=== PATIENT | male | born 1960 | race Hispanic/Latino ===

== ENCOUNTER 2017-01-10 08:59 | Outpatient (CLI) | payer OTHER ==
[2017-01-10 09:22] LABS: #Basophils 0.1 thou/uL (0.0-0.2); #Eosinphils 0.2 thou/uL (0.0-0.7); #Monocytes 0.4 thou/uL (0.11-0.59); #Neutrophils 6.6 thou/uL (1.40-6.50); %Basophils 0.7 % (0.0-1.0); %Lymphocytes 11.6 % (21.0-51.0); %Monocytes 5.2 % (0.0-10.0); %Neutrophils 79.6 % (42.0-75.0); Hemoglobin 16.2 g/dL (14.0-18.0); Mean Corpuscular Hemoglobin 30.6 pg (27.0-31.0); Mean Corpuscular Volume 92.8 fl (80.0-94.0); Mean Platelet Volume 7.7 fL (7.4-10.4); Platelet Count 329 thou/uL (130-400); RBC Distribution Width 12.2 % (11.5-14.5); Red Blood Cell (RBC) Count 5.28 mill/uL (4.70-6.10); White Blood Cell (WBC) Count 8.3 thou/uL (4.8-10.8)
[2017-01-10 09:33] LABS: Hemoglobin A1c 6.7 % (4.0-6.0)
[2017-01-10 09:44] LABS: ALT (SGPT) 15 U/L (8-55); AST (SGOT) 17 U/L (5-34); Albumin 3.8 g/dL (3.5-5.0); Alkaline Phosphatase 108 U/L (40-150); Anion Gap 17 mmol/L (10-20); BUN (Urea Nitrogen) 12 mg/dL (8.4-25.7); Bilirubin, Total 0.8 mg/dL (0.2-1.2); Calc. Creatinine Clearance 0 mL/min (70-130); Calcium 8.8 mg/dL (7.8-10.44); Carbon Dioxide 22 mmol/L (22-29); Cardiac Risk 4.2 (Less than 4.5); Chloride 102 mmol/L (98-107); Cholesterol 221 mg/dl (< 200 Desired); Estimated GFR-MDRD 72; Glucose 192 mg/dL (70-105); HDL Cholesterol 53 mg/dL (>60 Neg Risk); LDL Cholesterol, Calculated 130 mg/dL; Potassium 3.8 mmol/L (3.5-5.1); Protein, Total 6.8 g/dL (6.0-8.3); Sodium 137 mmol/L (136-145); Triglycerides 189 mg/dL (Less than 150)
[2017-01-10 10:02] LABS: Free T4 (Free Thyroxine) 0.89 ng/dL (0.70-1.48); Thyroid Stimulating Hormone 2.3541 uIU/mL (0.35-4.94)
== END 2017-01-10 09:00 | disposition home or self-care (01) ==
LOC: MADLABBHPM 08:59
PROVIDERS: ATTEND Family Medicine
DX: I10 Essential (primary) hypertension (principal)
CPT/HCPCS: 36415; 80053; 80061; 83036; 84439; 84443; 85025

== ENCOUNTER 2017-08-11 08:18 | Emergency (ER) | payer OTHER, SELFPAY ==
[2017-08-11] MEDS ORDERED: Sulfameth/Trimethoprim DS 800-160mg TAB ONE (08:42)
== END 2017-08-11 08:50 | disposition home or self-care (01) ==
LOC: MADERS 08:18
DX: L03.811 Cellulitis of head [any part, except face] (principal); I10 Essential (primary) hypertension; Z79.82 Long term (current) use of aspirin; Z79.899 Other long term (current) drug therapy
CPT/HCPCS: 99283

== ENCOUNTER 2017-08-14 16:06 | Outpatient (CLI) | payer OTHER, SELFPAY ==
[2017-08-14 16:45] LABS: ALT (SGPT) 15 U/L (8-55); AST (SGOT) 15 U/L (5-34); Albumin 3.8 g/dL (3.5-5.0); Alkaline Phosphatase 109 U/L (40-150); Anion Gap 14 mmol/L (10-20); BUN (Urea Nitrogen) 16 mg/dL (8.4-25.7); Bilirubin, Total 0.6 mg/dL (0.2-1.2); Calc. Creatinine Clearance 0 mL/min (70-130); Calcium 9.1 mg/dL (7.8-10.44); Carbon Dioxide 26 mmol/L (22-29); Cardiac Risk 3.3 (Less than 4.5); Chloride 102 mmol/L (98-107); Cholesterol 163 mg/dl (< 200 Desired); Estimated GFR-MDRD 67; Globulin 3.2 g/dL (2.4-3.5); Glucose 184 mg/dL (70-105); HDL Cholesterol 50 mg/dL (>60 Neg Risk); LDL Cholesterol, Calculated 98 mg/dL; Potassium 4.1 mmol/L (3.5-5.1); Sodium 138 mmol/L (136-145); Triglycerides 74 mg/dL (Less than 150)
[2017-08-14 20:26] LABS: Hemoglobin A1c 6.4 % (4.0-6.0)
== END 2017-08-14 16:07 | disposition home or self-care (01) ==
LOC: MADLABBHPM 16:06
PROVIDERS: ATTEND Family Medicine
DX: E11.9 Type 2 diabetes mellitus without complications (principal)
CPT/HCPCS: 36415; 80053; 80061; 83036

== ENCOUNTER 2017-08-16 21:04 | Emergency (ER) | payer SELFPAY | END 2017-08-16 22:10 | disposition home or self-care (01) | LOC: MADERS 21:04 | DX: Z48.01 Encounter for change or removal of surgical wound dressing (principal); Z48.817 Encounter for surgical aftercare following surgery on the skin and subcutaneous tissue; I10 Essential (primary) hypertension; Z87.891 Personal history of nicotine dependence; Z79.899 Other long term (current) drug therapy | CPT/HCPCS: 99282 ==

== ENCOUNTER 2017-12-02 18:04 | Emergency (ER) | payer SELFPAY ==
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
== END 2017-12-02 19:11 | disposition home or self-care (01) ==
LOC: MADERS 18:04
DX: S60.222A Contusion of left hand, initial encounter (principal); S60.221A Contusion of right hand, initial encounter; S80.10XA Contusion of unspecified lower leg, initial encounter; S06.9X9A Unspecified intracranial injury with loss of consciousness of unspecified duration, initial encounter; I10 Essential (primary) hypertension; Z87.891 Personal history of nicotine dependence; Z79.82 Long term (current) use of aspirin; Z79.899 Other long term (current) drug therapy; Y04.0XXA Assault by unarmed brawl or fight, initial encounter
CPT/HCPCS: 70450; 71046

== ENCOUNTER 2018-03-30 05:27 | Emergency (ER) | payer SELFPAY ==
[2018-03-30] MEDS ORDERED: Ondansetron ODT 4 MG TAB ONE (06:09)
[2018-03-30] MEDS ORDERED: Meclizine HCl 25 MG TAB ONE (06:09)
[2018-03-30] MEDS ORDERED: Lisinopril 10 MG TAB ONE ×2 (06:22)
[2018-03-30] MEDS ORDERED: Metoclopramide HCl 10 MG/2 ML VIAL ONE (06:58)
[2018-03-30 07:33] LABS: #Eosinphils 0.1 thou/uL (0.0-0.7); #Lymphocytes 0.7 thou/uL (1.20-3.40); #Monocytes 0.3 thou/uL (0.11-0.59); %Basophils 0.6 % (0.0-1.0); %Eosinophils 1.7 % (0.0-10.0); %Lymphocytes 9.5 % (21.0-51.0); %Monocytes 4.4 % (0.0-10.0); %Neutrophils 83.7 % (42.0-75.0); Hemoglobin 15.8 g/dL (14.0-18.0); Mean Corpuscular HGB CONC 31.9 g/dL (32.0-36.0); Mean Corpuscular Hemoglobin 29.3 pg (27.0-31.0); Mean Corpuscular Volume 91.8 fL (78.0-98.0); Mean Platelet Volume 7.2 fL (7.4-10.4); Platelet Count 294 thou/uL (130-400); Red Blood Cell (RBC) Count 5.39 mill/uL (4.70-6.10); White Blood Cell (WBC) Count 7.2 thou/uL (4.8-10.8)
[2018-03-30 07:41] LABS: INR-International Normal Ratio 0.9; Prothrombin Time 12.1 SEC (12.0-14.7)
[2018-03-30 07:51] LABS: ALT (SGPT) 11 U/L (8-55); AST (SGOT) 14 U/L (5-34); Albumin 4.1 g/dL (3.5-5.0); Alkaline Phosphatase 91 U/L (40-150); Anion Gap 15 mmol/L (10-20); BUN (Urea Nitrogen) 20 mg/dL (8.4-25.7); Bilirubin, Total 0.5 mg/dL (0.2-1.2); Calc. Creatinine Clearance 0 mL/min (70-130); Calcium 9.3 mg/dL (7.8-10.44); Carbon Dioxide 27 mmol/L (22-29); Chloride 103 mmol/L (98-107); Estimated GFR-MDRD 71; Globulin 2.7 g/dL (2.4-3.5); Glucose 200 mg/dL (70-105); Potassium 4.1 mmol/L (3.5-5.1); Protein, Total 6.8 g/dL (6.0-8.3); Sodium 141 mmol/L (136-145)
== END 2018-03-30 08:10 | disposition home or self-care (01) ==
LOC: MADERS 05:27
DX: I11.0 Hypertensive heart disease with heart failure (principal); I50.9 Heart failure, unspecified; E78.5 Hyperlipidemia, unspecified; Z87.891 Personal history of nicotine dependence; Z79.84 Long term (current) use of oral hypoglycemic drugs; Z79.899 Other long term (current) drug therapy
CPT/HCPCS: 80053; 85025; 85610; 96372; J2765; Q0162

== ENCOUNTER 2018-12-14 08:06 | Emergency (ER) | payer BC, OTHER, SELFPAY ==
[2018-12-14] MEDS ORDERED: Ketorolac Tromethamine 30 MG/ML VIAL ONE (09:09)
[2018-12-14] MEDS ORDERED: Diazepam 5 MG TAB ONE (09:09)
--- NOTE | 2018-12-14 10:38 | CT ---
CT ABDOMEN AND PELVIS: Date: 12/14/18 PROVIDED CLINICAL HISTORY: Right flank pain. FINDINGS: Visualized lung bases are free of significant opacity. There is no evidence for urinary tract calculi or hydronephrosis. The solid abdominal organs are subo ptimally evaluated in the absence of IV contrast but demonstrate an unremarkable unenhanced CT appear ance. There is no bowel dilatation, inflammatory fat stranding, free fluid, or free air apparent. Vascular calcifications are seen. The osseous structures demonstrate no concerning lytic or blastic l esions. Lumbar spine degenerative changes are seen. IMPRESSION: No evidence for urinary tract calculi or hydronephrosis. POS: [facility]
== END 2018-12-14 09:50 | disposition home or self-care (01) ==
LOC: MADERS 08:06
DX: S33.5XXA Sprain of ligaments of lumbar spine, initial encounter (principal); E11.9 Type 2 diabetes mellitus without complications; E78.5 Hyperlipidemia, unspecified; I11.0 Hypertensive heart disease with heart failure; I50.9 Heart failure, unspecified; Z87.891 Personal history of nicotine dependence; Z79.899 Other long term (current) drug therapy; X50.1XXA Overexertion from prolonged static or awkward postures, initial encounter
CPT/HCPCS: 74176; 96372; J1885

== ENCOUNTER 2019-06-24 14:14 | Emergency (ER) | payer SELFPAY ==
[2019-06-24] MEDS ORDERED: Prochlorperazine 10 MG/2 ML VIAL ONE (15:07)
== END 2019-06-24 15:29 | disposition home or self-care (01) ==
LOC: MADERS 14:14
DX: R42 Dizziness and giddiness (principal); R11.2 Nausea with vomiting, unspecified; I11.0 Hypertensive heart disease with heart failure; I50.9 Heart failure, unspecified; E11.9 Type 2 diabetes mellitus without complications; E78.5 Hyperlipidemia, unspecified; E78.00 Pure hypercholesterolemia, unspecified; Z87.891 Personal history of nicotine dependence; Z85.810 Personal history of malignant neoplasm of tongue; Z79.82 Long term (current) use of aspirin; Z79.84 Long term (current) use of oral hypoglycemic drugs; Z79.899 Other long term (current) drug therapy
CPT/HCPCS: 96372; 99283; J0780

== ENCOUNTER 2019-11-30 19:45 | Emergency (ER) | payer SELFPAY ==
[2019-11-30] MEDS ORDERED: Morphine 4 MG/ML VIAL ONE (21:44)
[2019-11-30] MEDS ORDERED: Ketorolac Tromethamine 30 MG/ML VIAL ONE (21:44)
[2019-11-30] MEDS ORDERED: Morphine 2 MG/ML SYRINGE ONE (21:44)
[2019-11-30] MEDS ORDERED: predniSONE 20 MG TAB ONE (21:44)
== END 2019-11-30 22:00 | disposition home or self-care (01) ==
LOC: MADERS 19:45
DX: S39.012A Strain of muscle, fascia and tendon of lower back, initial encounter (principal); E11.9 Type 2 diabetes mellitus without complications; E78.5 Hyperlipidemia, unspecified; E78.00 Pure hypercholesterolemia, unspecified; I11.0 Hypertensive heart disease with heart failure; I50.9 Heart failure, unspecified; Z87.891 Personal history of nicotine dependence; Z79.84 Long term (current) use of oral hypoglycemic drugs; Z79.82 Long term (current) use of aspirin; Z79.899 Other long term (current) drug therapy; X50.1XXA Overexertion from prolonged static or awkward postures, initial encounter
CPT/HCPCS: 96372; 99283; J1885; J2270; J7512

== ENCOUNTER 2019-12-23 01:00 | Emergency (ER) | payer SELFPAY ==
[2019-12-23] MEDS ORDERED: Tetracaine 0.5% OPHTH SOLN/PF 4 ML BOT ONE (01:25)
[2019-12-23] MEDS ORDERED: Fluorescein Opthalmic Strip ONE (01:26)
[2019-12-23] MEDS ORDERED: Tobramycin Sulfate 0.3% Ophth Susp 5 ml Bottle ONE (01:42)
[2019-12-23] MEDS ORDERED: Gentamicin 80 MG/2 ML VIAL ONE (01:43)
[2019-12-23] MEDS ORDERED: Erythromycin Base 0.5% Ophth Oint 3.5 gm Tube ONE (01:44)
== END 2019-12-23 02:10 | disposition home or self-care (01) ==
LOC: MADERS 01:00
DX: S05.31XA Ocular laceration without prolapse or loss of intraocular tissue, right eye, initial encounter (principal); E11.9 Type 2 diabetes mellitus without complications; E78.5 Hyperlipidemia, unspecified; E78.00 Pure hypercholesterolemia, unspecified; I11.0 Hypertensive heart disease with heart failure; I50.9 Heart failure, unspecified; Z87.891 Personal history of nicotine dependence; Z79.84 Long term (current) use of oral hypoglycemic drugs; Z79.82 Long term (current) use of aspirin; Z79.899 Other long term (current) drug therapy; W22.09XA Striking against other stationary object, initial encounter
CPT/HCPCS: 99283; J1580

== ENCOUNTER 2020-02-09 19:38 | Emergency (ER) | payer SELFPAY ==
[2020-02-09] MEDS ORDERED: Ketorolac Tromethamine 30 MG/ML VIAL ONE (20:49)
[2020-02-09] MEDS ORDERED: predniSONE 20 MG TAB ONE (20:49)
== END 2020-02-09 20:59 | disposition home or self-care (01) ==
LOC: MADERS 19:38
DX: S33.5XXA Sprain of ligaments of lumbar spine, initial encounter (principal); E11.9 Type 2 diabetes mellitus without complications; I10 Essential (primary) hypertension; Z87.891 Personal history of nicotine dependence; Z79.82 Long term (current) use of aspirin; Z79.84 Long term (current) use of oral hypoglycemic drugs; X50.1XXA Overexertion from prolonged static or awkward postures, initial encounter
CPT/HCPCS: 96372; 99283; J1885; J7512

== ENCOUNTER 2020-07-19 14:08 | Emergency (ER) | payer SELFPAY ==
[2020-07-19] MEDS ORDERED: Ondansetron PF 4 MG/2 ML Vial ONE (14:46)
[2020-07-19] MEDS ORDERED: Sodium Chloride 0.9% 1,000 ML ONE (14:46)
[2020-07-19] MEDS ORDERED: Ketorolac Tromethamine 30 MG/ML VIAL ONE (14:46)
--- NOTE | 2020-07-19 15:02 | CT ---
CT BRAIN WITHOUT CONTRAST: HISTORY: Headache, dizziness COMPARISON: 12/02/2017 FINDINGS: No evidence of acute infarct, hemorrhage, midline shift or abnormal extra-axial fluid collections is seen. The ventricular size is appropriate and the basilar cisterns are patent. The bony calvarium is intact. The visualized paranasal sinuses and mastoid air cells are well aerated. IMPRESSION: No CT evidence of acute intracranial process.
[2020-07-19 15:12] LABS: #Lymphocytes 0.6 thou/uL (1.20-3.40); #Monocytes 0.3 thou/uL (0.11-0.59); #Neutrophils 9.7 thou/uL (1.40-6.50); %Basophils 0.2 % (0.0-1.0); %Eosinophils 0.1 % (0.0-10.0); %Monocytes 2.4 % (0.0-10.0); %Neutrophils 91.3 % (42.0-75.0); Hemoglobin 15.4 g/dL (14.0-18.0); Mean Corpuscular HGB CONC 33.6 g/dL (32.0-36.0); Mean Corpuscular Hemoglobin 30.9 pg (27.0-31.0); Mean Corpuscular Volume 92.1 fL (78.0-98.0); Mean Platelet Volume 6.8 fL (7.4-10.4); Platelet Count 349 thou/uL (130-400); RBC Distribution Width 10.5 % (11.5-14.5); Red Blood Cell (RBC) Count 4.99 mill/uL (4.70-6.10); White Blood Cell (WBC) Count 10.6 thou/uL (4.8-10.8)
[2020-07-19 15:27] LABS: ALT (SGPT) 15 U/L (8-55); AST (SGOT) 15 U/L (5-34); Alkaline Phosphatase 83 U/L (40-110); Anion Gap 14 mmol/L (10-20); BUN (Urea Nitrogen) 14 mg/dL (8.4-25.7); Bilirubin, Total 0.5 mg/dL (0.2-1.2); CK (CPK) 52 U/L (30-200); Calc. Creatinine Clearance 0 mL/min (70-130); Carbon Dioxide 25 mmol/L (23-31); Chloride 100 mmol/L (98-107); Globulin 2.7 g/dL (2.4-3.5); Glucose 210 mg/dL (80-115); Potassium 3.8 mmol/L (3.5-5.1); Protein, Total 6.7 g/dL (5.8-8.1); Sodium 135 mmol/L (136-145)
[2020-07-19] MEDS ORDERED: Morphine 4 MG/ML VIAL ONE (15:52)
== END 2020-07-19 16:57 | disposition home or self-care (01) ==
LOC: MADERS 14:08
DX: I11.0 Hypertensive heart disease with heart failure (principal); I50.9 Heart failure, unspecified; R51.9 Headache, unspecified; E78.5 Hyperlipidemia, unspecified; E11.9 Type 2 diabetes mellitus without complications; E78.00 Pure hypercholesterolemia, unspecified; Z87.891 Personal history of nicotine dependence; Z79.84 Long term (current) use of oral hypoglycemic drugs; Z79.82 Long term (current) use of aspirin; Z79.899 Other long term (current) drug therapy; Z85.810 Personal history of malignant neoplasm of tongue
CPT/HCPCS: 70450; 80053; 82550; 85025; 94760; 96374; 96375; J1885; J2270; J2405; J7050

== ENCOUNTER 2020-07-20 17:04 | Emergency (ER) | payer SELFPAY ==
[~2020-07-20 17:04] MED LIST: Iopamidol 370 76% 125 ML VIAL FS ONE
[2020-07-20] MEDS ORDERED: methylPREDNISolone Sod Succ/PF 125 MG/2 ML VIAL ONE (17:35)
[2020-07-20] MEDS ORDERED: Magnesium 2 GM/50 ML BAG (IN WATER) ONE (17:35)
[2020-07-20] MEDS ORDERED: Sodium Chloride 0.9% 1,000 ML ONE (17:35)
[2020-07-20] MEDS ORDERED: Morphine 4 MG/ML VIAL ONE (17:35)
[2020-07-20 17:41] LABS: #Basophils 0.1 thou/uL (0.0-0.2); #Lymphocytes 1.1 thou/uL (1.20-3.40); #Monocytes 0.5 thou/uL (0.11-0.59); #Neutrophils 7.8 thou/uL (1.40-6.50); %Basophils 0.6 % (0.0-1.0); %Eosinophils 0.3 % (0.0-10.0); %Lymphocytes 11.2 % (21.0-51.0); %Monocytes 4.8 % (0.0-10.0); Hemoglobin 15.8 g/dL (14.0-18.0); Mean Corpuscular HGB CONC 32.8 g/dL (32.0-36.0); Mean Corpuscular Hemoglobin 30.4 pg (27.0-31.0); Mean Corpuscular Volume 92.5 fL (78.0-98.0); Mean Platelet Volume 7.3 fL (7.4-10.4); Platelet Count 392 thou/uL (130-400); RBC Distribution Width 10.5 % (11.5-14.5); Red Blood Cell (RBC) Count 5.22 mill/uL (4.70-6.10); White Blood Cell (WBC) Count 9.3 thou/uL (4.8-10.8)
[2020-07-20 17:54] LABS: ALT (SGPT) 14 U/L (8-55); AST (SGOT) 13 U/L (5-34); Alkaline Phosphatase 76 U/L (40-110); Anion Gap 16 mmol/L (10-20); BUN (Urea Nitrogen) 11 mg/dL (8.4-25.7); Bilirubin, Total 0.5 mg/dL (0.2-1.2); CRP (Inflammatory) 1.11 mg/dL (= or < 0.5); Calc. Creatinine Clearance 0 mL/min (70-130); Calcium 9.1 mg/dL (7.8-10.44); Carbon Dioxide 25 mmol/L (23-31); Chloride 99 mmol/L (98-107); Globulin 2.8 g/dL (2.4-3.5); Glucose 155 mg/dL (80-115); Potassium 3.9 mmol/L (3.5-5.1); Protein, Total 6.8 g/dL (5.8-8.1); Sodium 136 mmol/L (136-145)
--- NOTE | 2020-07-20 18:33 | CT ---
CT angiogram head CT angiogram neck: 07/20/2020 COMPARISON: None HISTORY: Headache TECHNIQUE: Axial CT imaging at 1.25 mm intervals from vertex through lung apices with IV contrast usi CT angiogram protocol. Coronal and sagittal 3-D reformatted imaging obtained. FINDINGS: The visualized lung apices appear grossly unremarkable. There is mild increased density in the right peritracheal region which could represent a mildly enlar ged lymph node, unchanged when compared to a CT angiogram of the chest performed 05/18/2014. The visualized paranasal sinuses and mastoid air cells demonstrate no acute findings. The retroantral fat and the parapharyngeal fat appears clear bilaterally. The parotid glands appear u nremarkable. The right submandibular gland appears unremarkable. The left submandibular gland appears surgically absent with postoperative clips in the region of the oral tongue on the left, the left floor of mouth, and the expected location of the left submandibular gland. The left sternocleidomastoid muscle appears partially surgically absent as well. There is no lymphadenopathy appreciated within the neck. Evaluation of the thyroid gland, cricoid cartilage, thyroid cartilage, hyoid bone, epiglottis, and le kayli of the glottis grossly unremarkable. The origin of the innominate artery, left common carotid artery, and left subclavian artery demonstra te no acute findings. There is moderate/severe stenosis suspected at the origin of the left vertebral artery. The left vertebral artery appears grossly unremarkable otherwise. The origin of the right subclavian artery, right common carotid artery, and right vertebral artery ap pear grossly unremarkable. The right vertebral artery appears grossly unremarkable. The basilar artery and its branches appear patent. No saccular aneurysm, high-grade stenosis, or vasc ular occlusion is seen involving the posterior circulation. There is a suggestion of subtle increased density surrounding the basilar artery and there is mild st enosis involving the mid basilar artery. On the basis of NASCET criteria there is no hemodynamically significant stenosis involving the common carotid artery on the right. There is mild stenosis on the basis of partially calcified plaque involving the right internal carotid artery on axial image 141. The right internal carotid artery is tortuous and demonstrates a medialized retropharyngeal course. On the basis of NASCET criteria there is no hemodynamically significant stenosis involving the left c ommon carotid artery. There are postoperative clips anterior to the proximal left internal carotid artery. There are areas of partially calcified plaque involving the midportion of the left internal c arotid artery. There is a focal area of hemodynamically significant stenosis involving the left internal carotid artery, best seen on axial image 147, estimated at at least 70%. The left internal c arotid artery just distal to this is medialized and demonstrates a retropharyngeal course. There is atherosclerotic calcification involving the cavernous carotid arteries. The internal carotid artery bifurcation, the A1 segment, the M1 segment, the MCA bifurcation, the dis shelia MCA branches, and the distal DONTE branches demonstrate no acute findings. Review of the osseous structures demonstrates mild degenerative change at the atlantoaxial interspace . No worrisome lytic or blastic bone lesions. IMPRESSION: There is a suggestion of increased density surrounding the basilar artery and there is a focal area of stenosis of the mid basilar artery in this region. These findings are suspicious for subarachnoid hemorrhage with vasospasm. No saccular aneurysm is evident on this examination. Follow-u p CT angiogram and/or conventional angiogram suggested. Postoperative changes within the neck. Areas of arterial stenosis are seen within the neck, most prom inently involving the left internal carotid artery. Dr. Zaragoza made aware 6:25 PM 07/20/2020
[2020-07-20] MEDS ORDERED: hydrALAZINE 20 MG/ML VIAL ONE (18:40)
== END 2020-07-20 19:07 | disposition short-term general hospital (02) ==
LOC: MADERS 17:04
DX: I60.9 Nontraumatic subarachnoid hemorrhage, unspecified (principal); E11.9 Type 2 diabetes mellitus without complications; I10 Essential (primary) hypertension; E78.5 Hyperlipidemia, unspecified; E78.00 Pure hypercholesterolemia, unspecified; Z87.891 Personal history of nicotine dependence; Z79.82 Long term (current) use of aspirin; Z79.84 Long term (current) use of oral hypoglycemic drugs; Z79.899 Other long term (current) drug therapy
CPT/HCPCS: 70496; 70498; 80053; 85025; 86140; 96365; 96375; J0360; J2270; J2930; J3475; J7050; Q9967

== ENCOUNTER 2020-09-22 16:51 | Emergency (ER) | payer SELFPAY ==
[2020-09-22] MEDS ORDERED: Nitroglycerin 0.4 MG TAB 1 EACH ONE (17:09)
[2020-09-22] MEDS ORDERED: Nitroglycerin 2% Ointment 1 INCH/1 GM Packet ONE (17:09)
== END 2020-09-22 18:02 | disposition home or self-care (01) ==
LOC: MADERS 16:51
DX: I11.0 Hypertensive heart disease with heart failure (principal); I50.9 Heart failure, unspecified; E11.9 Type 2 diabetes mellitus without complications; E78.5 Hyperlipidemia, unspecified; E78.00 Pure hypercholesterolemia, unspecified; Z79.899 Other long term (current) drug therapy; Z79.84 Long term (current) use of oral hypoglycemic drugs
CPT/HCPCS: 99283